=== PATIENT | female | born 1965 | race Caucasian/White ===

== ENCOUNTER 2018-07-03 12:02 | Emergency (ER) | payer SELFPAY ==
[2018-07-03] MEDS ORDERED: FEXO-67 PO (12:15)
[2018-07-03] MEDS ORDERED: LEVO50TA86 PO (12:15)
[2018-07-03] MEDS ORDERED: LOSA25TA50 PO (12:15)
--- NOTE | 2018-07-03 12:19 | ER Report ---
History and Physical Time Seen By MD: 12:18 Hx. of Stated Complaint: SEVERE FATIGUE FOR ONE MONTH. DIZZINESS, SOB THIS AM HPI/ROS CHIEF COMPLAINT: Fatigue, facial numbness. HISTORY OF PRESENT ILLNESS: 52-year-old female patient sent to emergency room with complaint of fatigue and facial numbness. Patient states that she has felt fatigued for the past several months. She states she's also had a persistent cough for months. She states she has seen her primary care provider who put her on antibiotics and she states she's not have any improvement. She denies having any fevers, chills, nausea, vomiting or diarrhea. Patient states she was at work today and felt very lightheaded. She felt like she was going to pass out. She states that she is not had any recent changes in medications. She's been taking the same medication she has been for the past couple of months. She states that she is eating and drinking well without any difficulties. REVIEW OF SYSTEMS: Respiratory: As noted above Cardiovascular: No chest pain, no palpitations. Gastrointestinal: No vomiting, no abdominal pain. Musculoskeletal: No back pain. Allergies: Coded Allergies: crab (Verified Allergy, Severe, 07/03/18) Uncoded Allergies: LOBSTER (Allergy, Severe, 07/03/18) ANTIBIOTIC - UNSURE OF NAME (Allergy, Intermediate, SEVERE VOMITING, ) Home Meds Active Scripts Cefixime (SUPRAX) 400 Mg Capsule, 1 TAB PO DAILY, #10 CAP Prov:SHASHI CANNON [facility] 07/03/18 Clindamycin Hcl (CLINDAMYCIN HCL) 300 Mg Capsule, 300 MG PO Q6H, #40 CAPSULE Prov:SHASHI CANNON [facility] 07/03/18 Sodium Chloride (SODIUM CHLORIDE) 1,000 Mg Tablet.maria eugenia, 1000 MG PO DAILY, #1 BOT Prov:SHASHI CANNON [facility] 07/03/18 Reported Medications Fexofenadine Hcl (CHEMA ALLERGY) 180 Mg Tablet, 180 MG PO QDAY 07/03/18 Losartan Potassium (LOSARTAN POTASSIUM) 25 Mg Tablet, 25 MG PO QDAY 07/03/18 Levothyroxine Sodium (LEVOTHYROXINE SODIUM) 50 Mcg Tablet, 25 MCG PO QDAY, TAB 07/03/18 Past Medical/Surgical History Patient has a past medical history of hypertension, hypothyroidism. Patient denies any surgical history. Reviewed Nurses Notes: Yes Constitutional Vital Sign - Last 24 Hours 07/03/18 07/03/18 07/03/18 07/03/18 12:09 12:10 12:30 12:32 Pulse 100 95 Resp 18 15 B/P (MAP) 197/110 197/110 (139) 180/120 (140) Pulse Ox 96 92 O2 Delivery Room Air 07/03/18 07/03/18 07/03/18 07/03/18 13:00 13:02 13:30 13:32 Pulse 99 104 Resp 31 27 B/P (MAP) 174/102 (126) 169/95 (119) Pulse Ox 94 95 07/03/18 14:00 B/P (MAP) 167/87 (113) Intake and Output 07/03/18 07/03/18 07/04/18 15:00 23:00 07:00 Intake Total 1000 ml Balance 1000 ml Physical Exam General Appearance: The patient is alert, has no immediate need for airway protection and no current signs of toxicity. Respiratory: Chest is non tender, lungs are clear to auscultation. Cardiac: regular rate and rhythm Gastrointestinal: Abdomen is soft and non tender, no masses, bowel sounds normal. Musculoskeletal: Neck: Neck is supple and non tender. Extremities have full range of motion and are non tender. Skin: No rashes or lesions. Neuro: Patient is alert and oriented 4, cranial nerves II through XII grossly intact. DIFFERENTIAL DIAGNOSIS: After history and physical exam differential diagnosis was considered for stroke, UT, electrolyte imbalance, infectious process. Medical Decision Making Data Points Result Diagram: 07/03/18 0000 07/03/18 0000 Laboratory Hematology Test 07/03/18 00:00 Red Blood Count 4.26 M/uL (4.17-5.56) Mean Corpuscular Volume 101.3 fL (80.0-96.0) Mean Corpuscular Hemoglobin 35.6 pg (26.0-33.0) Mean Corpuscular Hemoglobin Concent 35.2 g/dL (32.0-36.0) Red Cell Distribution Width 12.4 % (11.5-14.5) Mean Platelet Volume 7.9 fL (7.2-11.1) Neutrophils (%) (Auto) 49.8 % (39.4-72.5) Lymphocytes (%) (Auto) 34.4 % (17.6-49.6) Monocytes (%) (Auto) 11.8 % (4.1-12.4) Eosinophils (%) (Auto) 3.3 % (0.4-6.7) Basophils (%) (Auto) 0.7 % (0.3-1.4) Nucleated RBC Relative Count (auto) 0.1 /100WBC Neutrophils # (Auto) 2.9 K/uL (2.0-7.4) Lymphocytes # (Auto) 2.0 K/uL (1.3-3.6) Monocytes # (Auto) 0.7 K/uL (0.3-1.0) Eosinophils # (Auto) 0.2 K/uL (0.0-0.5) Basophils # (Auto) 0.0 K/uL (0.0-0.1) Nucleated RBC Absolute Count (auto) 0.00 K/uL Sodium Level 131 mmol/L (137-145) Potassium Level 4.7 mmol/L (3.5-5.0) Chloride Level 94 mmol/L (98-107) Carbon Dioxide Level 25 mmol/L (22-31) Blood Urea Nitrogen 8 mg/dl (7-18) Creatinine 0.60 mg/dl (0.52-1.04) Glomerular Filtration Rate Calc > 60.0 Random Glucose 100 mg/dl (75-110) Calcium Level 9.4 mg/dl (8.4-10.2) Total Bilirubin 0.4 mg/dl (0.2-1.3) Aspartate Amino Transf (AST/SGOT) 34 U/L (0-35) Alanine Aminotransferase (ALT/SGPT) 25 U/L (0-56) Alkaline Phosphatase 89 U/L (0-126) Troponin I < 0.012 ng/ml Total Protein 8.1 g/dl (6.3-8.2) Albumin 4.9 g/dl (3.5-5.0) Human Chorionic Gonadotropin, Qual Negative (NEGATIVE) Chemistry Test 07/03/18 00:00 White Blood Count 5.8 k/uL (4.5-11.0) Red Blood Count 4.26 M/uL (4.17-5.56) Hemoglobin 15.2 g/dL (12.0-16.0) Hematocrit 43.2 % (34.0-47.0) Mean Corpuscular Volume 101.3 fL (80.0-96.0) Mean Corpuscular Hemoglobin 35.6 pg (26.0-33.0) Mean Corpuscular Hemoglobin Concent 35.2 g/dL (32.0-36.0) Red Cell Distribution Width 12.4 % (11.5-14.5) Platelet Count 232 K/uL (150-450) Mean Platelet Volume 7.9 fL (7.2-11.1) Neutrophils (%) (Auto) 49.8 % (39.4-72.5) Lymphocytes (%) (Auto) 34.4 % (17.6-49.6) Monocytes (%) (Auto) 11.8 % (4.1-12.4) Eosinophils (%) (Auto) 3.3 % (0.4-6.7) Basophils (%) (Auto) 0.7 % (0.3-1.4) Nucleated RBC Relative Count (auto) 0.1 /100WBC Neutrophils # (Auto) 2.9 K/uL (2.0-7.4) Lymphocytes # (Auto) 2.0 K/uL (1.3-3.6) Monocytes # (Auto) 0.7 K/uL (0.3-1.0) Eosinophils # (Auto) 0.2 K/uL (0.0-0.5) Basophils # (Auto) 0.0 K/uL (0.0-0.1) Nucleated RBC Absolute Count (auto) 0.00 K/uL Glomerular Filtration Rate Calc > 60.0 Calcium Level 9.4 mg/dl (8.4-10.2) Total Bilirubin 0.4 mg/dl (0.2-1.3) Aspartate Amino Transf (AST/SGOT) 34 U/L (0-35) Alanine Aminotransferase (ALT/SGPT) 25 U/L (0-56) Alkaline Phosphatase 89 U/L (0-126) Troponin I < 0.012 ng/ml Total Protein 8.1 g/dl (6.3-8.2) Albumin 4.9 g/dl (3.5-5.0) Human Chorionic Gonadotropin, Qual Negative (NEGATIVE) EKG/Imaging EKG Interpretation 12 lead EKG: Rhythm: normal sinus rhythm with a ventricular rate of 90 beats for minute Wendel: normal QRS: normal ST segments: normal Imaging 2 VIEWS CHEST INDICATION: Cough for 2 months. Dizziness. COMPARISON: None available FINDINGS: Cardiomediastinal silhouette and pulmonary vessels within normal limits. There is no focal infiltrate or lobar consolidation. There is no pneumothorax or pleural effusion. On the lateral view there is a thin linear serpiginous density along the anterior aspect of the heart. This is not seen on the PA view. No discrete nodule. Upper abdomen is unremarkable. No acute bony abnormality. Previous augmentation changes to the L2-L3 vertebral bodies without sequelae. IMPRESSION: 1. No acute cardiopulmonary process. 2. On the lateral view there is a thin linear serpiginous density overlying the anterior heart. Uncertain if this is due to a dense cardiac vessel. 3. Augmentation changes of the L2 and L3 vertebral body without sequelae. Report Dictated By: Devyn Bui at 07/03/2018 12:57 PM Report E-Signed By: Devyn Bui at 07/03/2018 1:[address] Head without contrast Indication: Dizziness. Comparison: None available Technique: Axial CT images were obtained through the brain from the skull base to the vertex without administration of IV contrast. Reformatted coronal and sagittal images were also obtained. One of the following dose optimization techniques was utilized in the performance of this exam: automated exposure control; adjustment of the mA and/ or kV according to the patient's size; or use of an iterative reconstruction technique. Specific details can be referenced in the facility's radiology CT exam operational policy. Findings: No evidence of mass, mass effect, or midline shift. No acute intracranial hemorrhage or acute territorial infarction. No extra-axial fluid collection or hydrocephalus. Buitrago/white matter differentiation appears normal. Bony structures show no fractures or lesions. Prominent mucosal thickening seen in the right maxillary sinus, both ethmoid sinuses and right sphenoid sinus. Opacification of the right frontal sinus. The remaining sinuses and mastoids visualized are clear. IMPRESSION: 1. No acute intracranial abnormality. 2. Diffuse sinus disease. Report Dictated By: Devyn Bui at 07/03/2018 1:18 PM Report E-Signed By: Devyn Bui at 07/03/2018 1:22 PM ED Course/Re-evaluation ED Course Patient was admitted to examine, history and physical were obtained. Differential diagnoses were considered. On examination lungs are clear, heart is regular, abdomen soft nontender. Patient is somewhat emotional and tender. On my initial exam. A CBC, CMP, EKG, troponin, CT scan of the head, chest x-ray were done. Patient had a normal white count, she did have a low sodium of 131, EKG showed a normal sinus rhythm, troponin was negative. CT scan of the head was negative for any changes, however did show diffuse sinusitis, chest x-ray was clear. I discussed the findings with the patient. Reviewing her labs and her medications are believed that feel certain is likely causing her cough, I believe that her oxcarbazepine is an underlying cause of her hyponatremia. I will have her continue the medication touching follow-up with neurology. I will prescribe her a salt replacement tab that she stick once a day, I also like her to take antibiotics for sinusitis. Patient verbalized understanding and agreement with plan. We'll have her follow-up with her primary care provider as well as her neurologist as soon as possible. Decision to Disposition Date: Jul 03, 2018 Decision to Disposition Time: 13:42 Depart Departure Latest Vital Signs Vital Signs Date Time Temp Pulse Resp B/P (MAP) Pulse Ox O2 Delivery O2 Flow Rate FiO2 07/03/18 14:00 167/87 (113) 07/03/18 13:32 104 27 95 07/03/18 12:09 Room Air Impression: Primary Impression: Hyponatremia Additional Impressions: Medication reaction Sinusitis Condition: Improved Disposition: HOME OR SELF-CARE New Scripts Cefixime (SUPRAX) 400 Mg Capsule 1 TAB PO DAILY, #10 CAP Prov: SHASHI CANNON 07/03/18 Clindamycin Hcl (CLINDAMYCIN HCL) 300 Mg Capsule 300 MG PO Q6H, #40 CAPSULE Prov: SHASHI CANNON 07/03/18 Sodium Chloride (SODIUM CHLORIDE) 1,000 Mg Tablet.maria eugenia 1000 MG PO DAILY, #1 BOT Prov: SHASHI CANNON 07/03/18 Patient Instructions: Hyponatremia (ED) Additional Instructions: Continue with normal diet. Follow up with your primary care provider to discuss different blood pressure medication. Follow up with Neurology as I believe that your Oxcarbazepine is causing your low sodium. Return to the ER if condition worsens. Continue with your current medications. Problem Qualifiers Additional Impressions: Medication reaction Encounter type: initial encounter Qualified Codes: T50.905A - Adverse effect of unspecified drugs, medicaments and biological substances, initial encounter Sinusitis Sinusitis location: pansinusitis Chronicity: acute Recurrence: non- recurrent Qualified Codes: J01.40 - Acute pansinusitis, unspecified SHASHI CANNON Jul 03, 2018 12:19
[2018-07-03] MEDS ORDERED: NS(*) 0.9% 1000 ML BAG 1,000 ML IV ONE (12:31)
[2018-07-03 12:39] LABS: PLATELET COUNT, AUTOMATED 232 K/uL (150-450)
--- NOTE | 2018-07-03 13:05 | RADIOLOGY IMAGING REPORT ---
FACILITY: [facility] - [place] PATIENT NAME: Katie Pandya : 1965 MR: [id number] V: [id number] EXAM DATE: ORDERING PHYSICIAN: SHASHI CANNON TECHNOLOGIST: Location: [facility] [place] Patient: Katie Pandya : 1965 Visit/Account:[id number] Date of Sevice: 07/03/2018 2 VIEWS CHEST INDICATION: Cough for 2 months. Dizziness. COMPARISON: None available FINDINGS: Cardiomediastinal silhouette and pulmonary vessels within normal limits. There is no focal infiltrate or lobar consolidation. There is no pneumothorax or pleural effusion. On the lateral view there is a thin linear serpiginous density along the anterior aspect of the heart . This is not seen on the PA view. No discrete nodule. Upper abdomen is unremarkable. No acute bony abnormality. Previous augmentation changes to the L2-L3 vertebral bodies without sequelae. IMPRESSION: 1. No acute cardiopulmonary process. 2. On the lateral view there is a thin linear serpiginous density overlying the anterior heart. Uncer tain if this is due to a dense cardiac vessel. 3. Augmentation changes of the L2 and L3 vertebral body without sequelae. Report Dictated By: Devyn Bui at 07/03/2018 12:57 PM Report E-Signed By: Devyn Bui at 07/03/2018 1:01 PM WSN:[id number]
--- NOTE | 2018-07-03 13:27 | RADIOLOGY IMAGING REPORT ---
FACILITY: [facility] - [place] PATIENT NAME: Katie Pandya : 1965 MR: [id number] V: [id number] EXAM DATE: ORDERING PHYSICIAN: SHASHI CANNON TECHNOLOGIST: Location: [facility] - [place] Patient: Katie Pandya : 1965 Visit/Account:[id number] Date of Sevice: 07/03/2018 CT Head without contrast Indication: Dizziness. Comparison: None available Technique: Axial CT images were obtained through the brain from the skull base to the vertex without administration of IV contrast. Reformatted coronal and sagittal images were also obtained. One of the following dose optimization techniques was utilized in the performance of this exam: autom ated exposure control; adjustment of the mA and/or kV according to the patient's size; or use of an i terative reconstruction technique. Specific details can be referenced in the facility's radiology CT exam operational policy. Findings: No evidence of mass, mass effect, or midline shift. No acute intracranial hemorrhage or acute territorial infarction. No extra-axial fluid collection or hydrocephalus. Buitrago/white matter differentiation appears normal. Bony structures show no fractures or lesions. Prominent mucosal thickening seen in the right maxillary sinus, both ethmoid sinuses and right spheno id sinus. Opacification of the right frontal sinus. The remaining sinuses and mastoids visualized are clear. IMPRESSION: 1. No acute intracranial abnormality. 2. Diffuse sinus disease. Report Dictated By: Devyn Bui at 07/03/2018 1:18 PM Report E-Signed By: Devyn Bui at 07/03/2018 1:22 PM WSN:[id number]
[2018-07-03] MEDS ORDERED: [UNRECOGNIZED DRUG - CODE] PO (13:40)
[2018-07-03 14:00] VITALS: BP 167/87
[2018-07-03] MEDS ORDERED: CEFI400C PO (14:04)
[2018-07-03] MEDS ORDERED: CLIN300C99 PO (14:04)
--- NOTE | 2018-07-04 08:24 | EKG ---
FACILITY: [facility] - [place] PATIENT NAME: EDWARD MENDES : [id number] MR: [id number] V: [id number] EXAM DATE: ORDERING PHYSICIAN: SHASHI CANNON TECHNOLOGIST: KAILA Nava Reason : RESPIRATORY Blood Pressure : / mmHG Vent. Rate : 090 BPM Atrial Rate : 090 BPM P-R Int : 154 ms QRS Dur : 098 ms QT Int : 348 ms P-R-T Axes : 050 019 043 degrees QTc Int : 425 ms Normal sinus rhythm Normal ECG No previous ECGs available Confirmed by NORMA RUDD ([id number]) on 07/04/2018 11:25:55 AM Referred By: Confirmed By:NORMA RUDD
== END 2018-07-03 14:11 | disposition home or self-care (01) ==
LOC: ER 12:15
DX: T50.905A Adverse effect of unspecified drugs, medicaments and biological substances, initial encounter (principal); E87.1 Hypo-osmolality and hyponatremia; J01.40 Acute pansinusitis, unspecified
CPT/HCPCS: 70450; 71046; 84484; 84703; 85025; 93005; 96360; 99284; J7030; 82040; 82247; 82310; 82374; 82435; 82565; 82947; 84075; 84132; 84155; 84295; 84450; 84460; 84520